=== PATIENT | female | born 1980 | race Hispanic/Latino ===

== ENCOUNTER 2024-10-28 02:25 | Emergency (ER) | payer SELFPAY ==
[2024-10-28] MEDS ORDERED: Ketorolac Tromethamine 30 MG (1 mL) VIAL ONE (02:49)
[2024-10-28] MEDS ORDERED: Ondansetron PF 4 MG/2 ML Vial ONE (02:49)
[2024-10-28 02:54] LABS: BHCG - Serum Negative (NEGATIVE); Pregs Control Background? CLEAR/WHITE (CLR/WHITE); Pregs Control Bar Appear? YES (CONTROL BAR)
[2024-10-28 03:02] LABS: Glucose, Urine (Dipstick) 100 mg/dL (Negative); Leukocyte Negative (Negative); Protein, Urine (Dipstick) 30 mg/dL (Neg-Trace); Specific Gravity, Urine 1.020 (1.005-1.030)
[2024-10-28 03:05] LABS: ALT (SGPT) 31 U/L (Less than 34); AST (SGOT) 53 U/L (11-34); Albumin 4.1 g/dL (3.1-4.5); Alkaline Phosphatase 59 U/L (40-110); Anion Gap 15 mmol/L (10-20); BUN (Urea Nitrogen) 12 mg/dL (7.0-18.7); Bilirubin, Total 0.2 mg/dL (0.3-1.2); Calc. Creatinine Clearance 0 mL/min (70-130); Calcium 8.9 mg/dL (7.8-10.44); Carbon Dioxide 23 mmol/L (22-29); Chloride 106 mmol/L (98-107); Globulin 3.1 g/dL (2.4-3.5); Glucose 123 mg/dL (70-105); Lipase 12 U/L (8-78); Potassium 3.6 mmol/L (3.5-5.1); Sodium 140 mmol/L (136-145)
[2024-10-28 03:07] LABS: #Basophils 0.0 thou/uL (0.0-0.2); #Eosinophils 0.0 thou/uL (0.0-0.7); #Lymphocytes 1.0 thou/uL (1.20-3.40); #Monocytes 0.0 thou/uL (0.11-0.59); #Neutrophils 4.8 thou/uL (1.40-6.50); %Basophils 0.4 % (0.0-1.0); %Eosinophils 0.6 % (0.0-10.0); %Lymphocytes 16.6 % (21.0-51.0); %Monocytes 0.5 % (0.0-10.0); %Neutrophils 81.9 % (42.0-75.0); Hematocrit 26.2 % (36.0-47.0); Hemoglobin 8.3 g/dL (12.0-16.0); Mean Corpuscular Hemoglobin 23.1 pg (27.0-31.0); Mean Corpuscular Volume 72.2 fl (78.0-98.0); Platelet Count 235 10x3/uL (130-400); Red Blood Cell (RBC) Count 3.62 mill/uL (4.20-5.40); White Blood Cell (WBC) Count 5.9 10x3/uL (4.8-10.8)
[2024-10-28 03:30] LABS: Bacteria/HPF Rare-Few HPF (None Seen); CAUTI Indications for Culture Pelvic or flank pain
[2024-10-28 03:31] LABS: Urine Culture Reflex No No
[2024-10-28] MEDS ORDERED: metroNIDAZOLE 500 MG (100 mL) BAG ONE (04:25)
[2024-10-28] MEDS ORDERED: Iopamidol 370 76% 100 ML VIAL ONE (10:23)
== END 2024-10-28 05:51 | disposition short-term general hospital (02) ==
LOC: BURERS 02:25
DX: K52.9 Noninfective gastroenteritis and colitis, unspecified (principal); N30.00 Acute cystitis without hematuria; K59.00 Constipation, unspecified; E86.0 Dehydration
CPT/HCPCS: 74177; 80053; 81001; 83690; 84703; 85025; 96361; 96365; 96366; 96368; 96372; 96375; J0692; J1885; J2270; J2405; J2919; Q9967